=== PATIENT | female | born 1995 | race Caucasian/White ===

== ENCOUNTER → 2017-08-13 | Emergency (ER) | payer OTHER ==
[~2017-08-13] VITALS: Ht 157.5 cm; Wt 63.5 kg
== END | disposition home or self-care (01) ==
LOC: ER 17:26
DX: N92.1 Excessive and frequent menstruation with irregular cycle (principal); D64.9 Anemia, unspecified

== ENCOUNTER 2018-07-16 15:52 | Emergency (ER) | payer OTHER ==
[~2018-07-16] VITALS: Ht 165.1 cm; Wt 67.1 kg
== END 2018-07-16 17:47 | disposition home or self-care (01) ==
LOC: ER 15:52
DX: J11.1 Influenza due to unidentified influenza virus with other respiratory manifestations (principal)

== ENCOUNTER 2018-12-06 16:46 | Emergency (ER) | payer OTHER ==
[~2018-12-06] VITALS: Ht 165.1 cm; Wt 65.8 kg
[2018-12-06] MEDS ORDERED: MUCINEX DM ER1 EAC1 PO (20:36)
[2018-12-06] MEDS ORDERED: TESSALON PERLE100 M1 PO (20:36)
[2018-12-06] MEDS ORDERED: ZITHROMAX500 MG PO (20:36)
[2018-12-06] MEDS ORDERED: KETO10TA2 PO (20:36)
== END 2018-12-06 20:58 ==
LOC: ER 16:46
DX: J06.9 Acute upper respiratory infection, unspecified (principal); A49.3 Mycoplasma infection, unspecified site; R51 Headache

== ENCOUNTER 2019-07-29 16:06 | Emergency (ER) | payer OTHER ==
[~2019-07-29] VITALS: Ht 165.1 cm; Wt 65.8 kg
[~2019-07-29 16:06] MED LIST: KETO10TA2 PO; MUCINEX DM ER1 EAC1 PO; TESSALON PERLE100 M1 PO; ZITHROMAX500 MG PO
[2019-07-29] MEDS ORDERED: ONE DAILY MULT1 EAC2 (16:20)
== END 2019-07-29 17:50 | disposition home or self-care (01) ==
LOC: ER 16:06
DX: N93.8 Other specified abnormal uterine and vaginal bleeding (principal)

== ENCOUNTER 2020-04-16 16:38 | Emergency (ER) | payer OTHER ==
[~2020-04-16] VITALS: Ht 170.2 cm; Wt 70.3 kg
[~2020-04-16 16:38] MED LIST changes: +ONE DAILY MULT1 EAC2
[2020-04-16] MEDS ORDERED: DUI500 PO (18:41)
[2020-04-16] MEDS ORDERED: BENADRYL25 MG PO (18:41)
[2020-04-16] MEDS ORDERED: INTESTINEX680 M2 PO (18:42)
== END 2020-04-16 18:44 | disposition home or self-care (01) ==
LOC: ER 16:38
DX: L01.09 Other impetigo (principal); R21 Rash and other nonspecific skin eruption

== ENCOUNTER 2021-02-10 08:48 | Emergency (ER) | payer OTHER ==
[~2021-02-10] VITALS: Ht 165.1 cm; Wt 67.1 kg
[~2021-02-10 08:48] MED LIST changes: +BENADRYL25 MG PO; +DUI500 PO; +INTESTINEX680 M2 PO
== END 2021-02-10 12:35 | disposition home or self-care (01) ==
LOC: ER 08:48
DX: O20.9 Hemorrhage in early pregnancy, unspecified (principal)

== ENCOUNTER 2021-02-12 01:03 | Emergency (ER) | payer OTHER ==
[~2021-02-12] VITALS: Ht 165.1 cm; Wt 67.1 kg
== END 2021-02-12 05:13 | disposition home or self-care (01) ==
LOC: ER 01:03
DX: O02.9 Abnormal product of conception, unspecified (principal)

== ENCOUNTER 2024-01-23 11:23 | Emergency (ER) | payer OTHER ==
[~2024-01-23] VITALS: Ht 165.1 cm; Wt 67.1 kg
[2024-01-23] MEDS ORDERED: MEPERIDINE HCL/PF 25 MG/ML VIAL IM ONE (12:00)
[2024-01-23 12:10] LABS: HEMATOCRIT 35.9 % (36.0-45.00); HEMOGLOBIN 12.3 g/dL (12.0-15.00); MEAN CELL VOLUME 90.7 fL (80.00-100.00); MEAN CORPUSCULAR HEMOGLOBIN 31.1 pg (27.00-32.0); MEAN CORPUSCULAR HGB CONC 34.2 g/dl (32.0-36.0); PLATELET COUNT 244 K/uL (150-450); RED BLOOD COUNT 3.95 M/uL (4.00-6.00); RED CELL DISTRIBUTION WIDTH 13.2 % (11.5-14.5)
== END 2024-01-23 13:30 | disposition home or self-care (01) ==
LOC: ER 11:24
PROVIDERS: General Practice
DX: N93.9 Abnormal uterine and vaginal bleeding, unspecified (principal); Z91.013 Allergy to seafood